=== PATIENT | male | born 2000 | race Caucasian/White ===

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

== ENCOUNTER 2021-02-27 12:18 | Emergency (ER) | payer OTHER, SELFPAY ==
[2021-02-27] VITALS (22 sets, daily range): BP systolic 109–152; BP diastolic 55–124; PULSE 56–89; RESP 9–19; TEMP 36.6; O2SAT 96–100
[2021-02-27] MEDS: Ondansetron 4 MG/2 ML VIAL (12:50)
--- NOTE | 2021-02-27 12:54 | ED.GENADUL_ITS ---
Discharge Plan Disposition Patient Disposition: HOME Condition: Good Discharge Details Clinical Impression: Nausea vomiting and diarrhea, Hypokalemia Primary Care Provider: Damon Brice ED Provider: Meli Ko Home Meds and New Rx's Prescriptions: New prochlorperazine maleate [Compazine] 10 mg tablet 10 mg PO Q6H PRNQty: 10 RF: 0 potassium chloride 20 mEq tablet,ER particles/crystals 20 meq PO DAILY Qty: 5 RF: 0 Discharge Instructions Instructions: Hypokalemia (ED), Acute Nausea and Vomiting (ED) Additional Instructions: Take potassium tomorrow if you are feeling improved Take Compazine as needed for nausea and vomiting Gatorade and clear liquid diet as tolerated Smoking marijuana may contribute your symptoms, I recommend smoking cessation Return earlier should you have new or worsening Discharge Data Discharge Date/Time-TO BE ENTERED AT DEPARTURE: 02/27/21 14:34 Medical Decision Making Of note, Elvia, nurse for patient went into her room and found him actively eliciting gag reflex, patient was asked why he was doing this and states because he is persistently nauseous He was given Compazine subsequently after Zofran administration and felt symptomatically improved and is requesting discharge home at this time He was given a liter of normal saline, potassium was entered to be 3.2, supplemented with oral outpatient therapy He will tolerate a liquid diet for the next day return should he have new or worsening complaints No focal tenderness on exam, abdomen feels improved antiemetics Given Compazine for home Differential Diagnosis Differential Diagnosis: Cannabinoid hyperemesis syndrome, gastroenteritis, gastritis, appendicitis Lab Data Lab results reviewed: Yes I reviewed the patient's lab results. HPI 20-year-old gentleman presents with nausea, vomiting, diarrhea. Patient states her symptoms started on Wednesday. He had a coworker who tested positive for COVID-19 on Wednesday reportedly. He denies any cough or fever today. He denies any chest pain or shortness of breath. He denies any myalgias. He denies any known spoiled food exposure. He has some cramping in his abdomen that is generalized and partially alleviated vomiting. He denies any additional complaints at this time. Denies any dark or tarry stools. Has had dark vomit, denies any visible bright bright blood General Date/Time Provider Initiated Documentation: 02/27/21 12:29 . Related Data Home Medications Medication Instructions Recorded Confirmed potassium chloride 20 meq PO DAILY #5 tab 02/27/21 prochlorperazine maleate 10 mg PO Q6H PRN #10 tab 02/27/21 [Compazine] Previous Rx's Medication Instructions Recorded potassium chloride 20 meq PO DAILY #5 tab 02/27/21 prochlorperazine maleate 10 mg PO Q6H PRN #10 tab 02/27/21 [Compazine] Allergies Allergy/AdvReac Type Severity Reaction Status Date / Time No Known Allergies Allergy Unverified 02/27/21 12:32 General Stated Complaint: Nausea/Vomit/Diar CROW: 3 Review of Systems Narrative: Review of systems obtained x7 aside from where indicated in HPI PFSH Family History Mother Substance abuse Mental disorder anxiety/depression Father Essential hypertension Other Diabetes mat great GF Myocardial infarction mat great GM Stroke PGF GRANDPARENT Heart disease Social History Smoking/Tobacco Use Status: Former Tobacco Use Smoking risk assessment performed?: Yes Alcohol Intake: current Alcohol Intake frequency: holidays/special occasions only Drug use: Daily Substance use type: marijuana Do you feel safe at home: Yes Do you feel safe in your relationship?: Yes Exam Const General: cooperative Orientation: oriented x3 Resp Effort & Inspection: normal respiratory effort Cardio Rate: regular rate Rhythm: regular rhythm GI Other: Mild diffuse tenderness no rebound or guarding Skin Other: Pallor Neuro General: patient alert and patient oriented x3 Course Vital Signs Vital signs: Vital Signs Temperature 36.6 C 02/27/21 12:26 Pulse 66 02/27/21 12:26 Respiratory Rate 18 02/27/21 12:26 Blood Pressure 152/89 H 02/27/21 12:26 Pulse Oximetry 100 02/27/21 12:26 Temperature 36.6 C 02/27/21 12:26 Temperature Source Temporal Artery Scan 02/27/21 12:26 Pulse 66 02/27/21 12:26 Respiratory Rate 18 02/27/21 12:26 Respiratory Effort Non-Labored 02/27/21 12:32 Blood Pressure 152/89 H 02/27/21 12:26 Blood Pressure Position Sitting 02/27/21 12:26 Pulse Oximetry 100 02/27/21 12:26 Oxygen Delivery Method Room Air 02/27/21 12:26 Oxygen Flow Rate 0 02/27/21 12:26 Pain Level 0 02/27/21 12:26
[2021-02-27] MEDS: Normal Saline 1,000 ML 1000 ML IV (13:01)
[2021-02-27 13:12] LABS: Abs Immature Grans 0.05 10^3/uL (0.0-0.06); Absolute Basophil Count 0.03 10^3/uL (0.0-0.2); Absolute Eosinophil Count 0.16 10^3/uL (0.0-0.7); Absolute Lymphocyte Count 1.56 10^3/uL (1.2-3.4); Absolute Monocyte Count 0.62 10^3/uL (0.1-0.8); Absolute Neutrophil Count 8.21 10^3/uL (1.2-6.7); Basophils % 0.3; Eosinophils % 1.5; HCT 44.7 % (40.0-50.0); Immature Grans % 0.5; Lymphocytes % 14.7; MCH 29.1 pg (27.0-33.0); MCHC 33.6 % (32.0-36.0); MCV 86.6 fL (80-95); MPV 10.7 fL (8.0-11.0); Monocytes % 5.8; Neutrophils % 77.2; Nucleated RBC 0 %; Platelet Count 242 10^3/uL (130-400); RBC 5.16 10^6/uL (4.36-5.78); RDW 12.1 % (11.8-14.1); RDW-SD 38.8 fL; WBC 10.63 10^3/uL (4.4-10.8)
[2021-02-27] MEDS: Prochlorperazine 10 MG/2 ML VIAL IVP (13:16)
[2021-02-27 13:28] LABS: ALT 27 U/L (16-63); AST 13 U/L (15-37); Albumin 4.6 g/dL (3.4-5.0); Alkaline Phosphatase 49 U/L (46-116); Anion Gap 11.2 mmol/L (3-11); BUN 12 mg/dL (7-18); Bilirubin, Total 0.6 mg/dL (0.2-1.0); CO2 27.8 mmol/L (21.0-32.0); CREATININE 0.9 mg/dL (0.70-1.30); Calcium 9.3 mg/dL (8.5-10.1); Chloride 103 mmol/L (98-107); Glucose 110 mg/dL (74-106); Lipase 138 U/L (73-393); Potassium 3.2 mmol/L (3.5-5.1); Sodium 142 mmol/L (136-145); Total Protein 7.8 g/dL (6.4-8.2)
--- NOTE | 2021-02-27 15:31 | NUR.NOTE ---
spoke with pharmacist at [facility]. Gave verbal orders for potassium and compazine. [facility] to send rxes to [facility].
--- NOTE | 2021-02-28 16:02 | NUR.NOTE ---
Nursing Note: Patient called this morning stating he was having trouble obtaining his prescriptions. After consulting with Kavita Armendariz, Care Management, I left a message on patient's cell phone with the phone number and name of [facility]. Jeimy Tenorio
== END 2021-02-27 14:34 | disposition home or self-care (01) ==
PROVIDERS: Emergency Provider Physician Assistant; PCP Pediatrics
DX: R11.2 Nausea with vomiting, unspecified (principal); R19.7 Diarrhea, unspecified; E87.6 Hypokalemia
CPT/HCPCS: 80053; 83690; 96361; 96374; 96375; 99284; 85025; 99283; J0780; J2405

== ENCOUNTER 2021-03-15 15:50 | Emergency (ER) | payer OTHER, SELFPAY ==
[2021-03-15 15:58] VITALS: BP 163/72; PULSE 92; RESP 16; TEMP 36.7; O2SAT 100
--- NOTE | 2021-03-15 16:15 | DI.CT_ITS ---
Exam(s) CT ABDOMEN PELVIS W EXAM: CT ABDOMEN PELVIS W CLINICAL HISTORY: Upper abd pain, Nausea vomiting TECHNIQUE: Imaging Protocol: Axial computed tomography images with coronal and sagittal reformatted images were created and reviewed CONTRAST MATERIAL: Intravenous: Omnipaque 350 Contrast volume:100 mL Oral: No COMPARISON: No exams were available for comparison FINDINGS: ABDOMEN: Lung Bases: Normal where visualized. Liver: Normal density. No measurable mass. Portal, Superior Mesenteric, and Splenic Veins: Unremarkable. Gallbladder and Biliary Tract: No radiodense calculus or dilation. Pancreas: Normal density, no abnormal calcifications or inflammatory process. Spleen: Normal. Adrenals: No masses seen. Kidneys: Normal size, contour and axis. No radiodense stones or obstructive uropathy. No masses seen. Abdominal Aorta: Abdominal portion non-dilated. Bowel: No obstruction or bowel wall thickening. Appendix is unremarkable. Peritoneal Cavity: No ascites, collection or mesenteric inflammatory response. No free air. Lymph Nodes: Within normal limits. Bones: Within normal limits for the patient's age. Soft Tissues: Unremarkable. PELVIS: Bladder: Symmetric distention, no gross wall thickening. Reproductive Organs: Unremarkable as visualized. Lymph Nodes: Within normal limits. Bones: Within normal limits for the patient's age. IMPRESSION: Unremarkable CT scan of the abdomen and pelvis. RADIATION DOSE DELIVERED: 1,090.83mGy.cm Total DLP DATA REPOSITORY: All CT scans at this facility are submitted to the National Radiology Data Registry (NRDR) Dose Index Registry (DIR) with the [employer] (ACR). RADIATION OPTIMIZATION: All CT scans at this facility use at least one of these dose optimization te chniques: automated exposure control; mA and/or kV adjustment per patient size (includes targeted exa ms where dose is matched to clinical indication); or iterative reconstruction.
--- NOTE | 2021-03-15 16:15 | ED.GENADUL_ITS ---
Discharge Plan Disposition Patient Disposition: HOME Condition: Stable Discharge Details Clinical Impression: Nausea & vomiting Primary Care Provider: Damon Brice ED Provider: Char Cabello Home Meds and New Rx's Prescriptions: New ondansetron 4 mg tablet,disintegrating 4 mg PO Q8H PRN5 Days Qty: 15 RF: 0 No Action prochlorperazine maleate [Compazine] 10 mg tablet 10 mg PO Q6H PRNQty: 10 RF: 0 potassium chloride 20 mEq tablet extended release 20 meq PO DAILY Qty: 6 RF: 0 Discharge Instructions Instructions: Acute Nausea and Vomiting (ED) Additional Instructions: Follow up with primary care provider in 3-5 days. Return to ED sooner if any worsening or concerns. Increase oral fluids. Take nausea medications as directed. Small frequent meals. Try alessia and lemon. CT and labs today were within normal limits. You are placed on care management list for help with primary care provider establishment. Referrals: Damon Brice MD [Primary Care Provider] - Discharge Data Discharge Date/Time-TO BE ENTERED AT DEPARTURE: 03/15/21 17:55 Medical Decision Making 20-year-old male presents to the ER with chief complaint of nausea vomiting loose stools for approximately 3 weeks. Was recently seen in the ER for similar 2 weeks ago. He reports that he just recently filled the potassium and Compazine prescriptions. He reports vomiting worse in the mornings. Labs ordered and CT abdomen pelvis. V rad CT abdomen pelvis results: FINDINGS: Liver: Normal. No mass. Gallbladder and bile ducts: Normal. No calcified stones. No ductal dilation. Pancreas: Normal. No ductal dilation. Spleen: Normal. No splenomegaly. Adrenal glands: Normal. No mass. Kidneys and ureters: Normal. No hydronephrosis. Stomach and bowel: Unremarkable. No obstruction. No mucosal thickening. Appendix: No evidence of appendicitis. Intraperitoneal space: Unremarkable. No free air. No significant fluid collection. Vasculature: Unremarkable. No abdominal aortic aneurysm. Lymph nodes: Unremarkable. No enlarged lymph nodes. Urinary bladder: Unremarkable as visualized. Reproductive: Unremarkable as visualized. Bones/joints: Unremarkable. No acute fracture. Soft tissues: Unremarkable. IMPRESSION: No acute findings. CBC, CMP largely unremarkable. AST is 13, ALT 28, alk phos 54 total protein 8.5, albumin 5.1. Discussed lab and CT results with patient who verbalized understanding. Patient has had no further emesis and feels better on reevaluation. Discussed home care will place patient on care management list for establishment of primary care provider. Given Zofran 4 mg ODT to go and a prescription written for this. Patient verbalized understanding and discussed strict return instructions. This text was generated using [employer] dictation system, please disregard any oddities of phrase or misspellings. HPI General Mode of arrival: ambulatory . Date/Time Provider Initiated Documentation: 03/15/21 16:04 . Limitations to Documentation: no limitations . Information obtained by: patient . HPI Narrative: 20-year-old male presents to the ER with chief complaint of nausea vomiting and loose stools for approximately 3 weeks. He was seen in the department approximately 2 weeks ago for similar. Was found to have hypokalemia at that time. He was prescribed Compazine and potassium supplements which he reports he just filled a couple of days ago. He did take 1 tablet prior to arrival with continued vomiting. He does report some upper midepigastric abdominal pain with palpation. Denies any hematochezia. Denies any problems urinating or burning with urination. Denies any fever. Related Data Home Medications Medication Instructions Recorded Confirmed potassium chloride 20 meq PO DAILY #6 tab 02/28/21 03/15/21 prochlorperazine maleate 10 mg PO Q6H PRN #10 tab 02/28/21 03/15/21 [Compazine] ondansetron 4 mg PO Q8H PRN 5 Days #15 tab 03/15/21 Previous Rx's Medication Instructions Recorded potassium chloride 20 meq PO DAILY #6 tab 02/28/21 prochlorperazine maleate 10 mg PO Q6H PRN #10 tab 02/28/21 [Compazine] ondansetron 4 mg PO Q8H PRN 5 Days #15 tab 03/15/21 Allergies Allergy/AdvReac Type Severity Reaction Status Date / Time No Known Allergies Allergy Unverified 03/15/21 16:03 General Stated Complaint: Nausea/Vomit/Diar CROW: 3 Review of Systems Narrative: Constitutional: Negative for weight loss, alert and oriented, well groomed, normal body habitus, appears comfortable. HEENT: Denies trauma, headaches, blurry vision, nasal discharge, sore throat, trouble swallowing. Chest: Denies chest pain, palpitations, irregular rhythm, hypertension. Respiratory: Denies Shortness of breath, cough, hemoptysis. GI: Denies diarrhea, constipation. Positive loose stools, nausea vomiting, midepigastric abdominal tenderness. : Denies dysuria, hematuria, flank pain, rectal bleeding. Neuro: Denies dizziness, blurry vision, weakness, syncope, headache or facial numbness. Hematologic: Denies easy bruising, intolerance to heat or cold, hair loss. PFSH Family History Mother Substance abuse Mental disorder anxiety/depression Father Essential hypertension Other Diabetes mat great GF Myocardial infarction mat great GM Stroke PGF GRANDPARENT Heart disease Social History Smoking/Tobacco Use Status: Former Tobacco Use Smoking risk assessment performed?: Yes Alcohol Intake: current Alcohol Intake frequency: holidays/special occasions only Drug use: Daily Substance use type: marijuana Do you feel safe at home: Yes Do you feel safe in your relationship?: Yes Exam Narrative Exam Narrative: Constitutional: Alert and oriented x3. Appears stated age. Normal body habitus. Head: Normocephalic, no trauma. Eyes: Pupils PERRLA, Red reflex noted, EOM's intact. Eyelids symmetrical without lesions, discharge, or swelling. ENT: Bilateral TM's WNL, External ear normal to inspection, no mastoid TTP, swelling, or erythema, Nasal turbinates WNL, no nasal discharge. Normal dentition, Posterior pharynx WNL, no exudate. Chest: RRR, Normal S1, S2, distal pulses intact. Resp: Lungs clear to auscultation bilaterally, no wheezes, rales, or rhonchi. Abdomen: Soft, nondistended midepigastric tenderness to palpation. Musculoskeletal: Normal gait, 5/5 strength to all four extremities. Skin: No suspicious rashes or lesions. Capillary refill less than 2 sec. Neurologic: Cranial nerves II-XII intact. Alert and oriented x 3. DTR's intact. Hematologic/Lymphatic: No ecchymosis, no lymphadenopathy. Course Vital Signs Vital signs: Vital Signs Temperature 36.7 C 03/15/21 15:58 Pulse 92 H 03/15/21 15:58 Respiratory Rate 16 03/15/21 15:58 Blood Pressure 163/72 H 03/15/21 15:58 Pulse Oximetry 100 03/15/21 15:58 Temperature 36.7 C 03/15/21 15:58 Temperature Source Temporal Artery Scan 03/15/21 15:58 Pulse 92 H 03/15/21 15:58 Respiratory Rate 16 03/15/21 15:58 Respiratory Effort 03/15/21 16:05 Blood Pressure 163/72 H 03/15/21 15:58 Blood Pressure Position Sitting 03/15/21 15:58 Pulse Oximetry 100 03/15/21 15:58 Oxygen Delivery Method Room Air 03/15/21 15:58 Oxygen Flow Rate 0 03/15/21 15:58 Pain Level 0 03/15/21 15:58
[2021-03-15] MEDS: Normal Saline 1,000 ML 1000 ML IV (16:30)
[2021-03-15] MEDS: Ondansetron 4 MG/2 ML VIAL IVP (16:35)
[2021-03-15 16:56] LABS: Abs Immature Grans 0.01 10^3/uL (0.0-0.06); Absolute Basophil Count 0.02 10^3/uL (0.0-0.2); Absolute Eosinophil Count 0.02 10^3/uL (0.0-0.7); Absolute Lymphocyte Count 0.72 10^3/uL (1.2-3.4); Absolute Monocyte Count 0.28 10^3/uL (0.1-0.8); Absolute Neutrophil Count 6.21 10^3/uL (1.2-6.7); Basophils % 0.3; Eosinophils % 0.3; HCT 45.8 % (40.0-50.0); HGB 15.6 g/dL (13.5-17.5); Immature Grans % 0.1; Lymphocytes % 9.9; MCH 29.2 pg (27.0-33.0); MCHC 34.1 % (32.0-36.0); MCV 85.8 fL (80-95); MPV 10.7 fL (8.0-11.0); Monocytes % 3.9; Neutrophils % 85.5; Nucleated RBC 0 %; Platelet Count 229 10^3/uL (130-400); RBC 5.34 10^6/uL (4.36-5.78); RDW 12.3 % (11.8-14.1); RDW-SD 38.5 fL; WBC 7.26 10^3/uL (4.4-10.8)
[2021-03-15 17:05] LABS: ALT 28 U/L (16-63); AST 13 U/L (15-37); Albumin 5.1 g/dL (3.4-5.0); Alkaline Phosphatase 54 U/L (46-116); Anion Gap 13.2 mmol/L (3-11); BUN 12 mg/dL (7-18); Bilirubin, Total 0.6 mg/dL (0.2-1.0); CO2 26.8 mmol/L (21.0-32.0); CREATININE 0.8 mg/dL (0.70-1.30); Calcium 9.7 mg/dL (8.5-10.1); Chloride 102 mmol/L (98-107); Glucose 96 mg/dL (74-106); Magnesium 1.8 mg/dL (1.8-2.4); Potassium 4.1 mmol/L (3.5-5.1); Sodium 142 mmol/L (136-145); Total Protein 8.5 g/dL (6.4-8.2)
[2021-03-15] MEDS: Normal Saline - Diluent 50 ML VIAL IV (17:07)
[2021-03-15] MEDS: Omnipaque 350 MG/ML 100 ML BTL IJ (17:07)
--- NOTE | 2021-03-15 17:23 | DI.VRAD_ITS ---
PROCEDURE INFORMATION: Exam: CT Abdomen And Pelvis With Contrast Exam date and time: 03/15/2021 4:29 PM Age: 20 years old Clinical indication: Patient HX: Chronic vomiting of bile when waking up, regardless of time of day or food intake TECHNIQUE: Imaging protocol: Computed tomography of the abdomen and pelvis with contrast. Contrast material: OMNIPAQUE 350; Contrast volume: 100 ml; Contrast route: INTRAVENOUS (IV); COMPARISON: No relevant prior studies available. FINDINGS: Liver: Normal. No mass. Gallbladder and bile ducts: Normal. No calcified stones. No ductal dilation. Pancreas: Normal. No ductal dilation. Spleen: Normal. No splenomegaly. Adrenal glands: Normal. No mass. Kidneys and ureters: Normal. No hydronephrosis. Stomach and bowel: Unremarkable. No obstruction. No mucosal thickening. Appendix: No evidence of appendicitis. Intraperitoneal space: Unremarkable. No free air. No significant fluid collection. Vasculature: Unremarkable. No abdominal aortic aneurysm. Lymph nodes: Unremarkable. No enlarged lymph nodes. Urinary bladder: Unremarkable as visualized. Reproductive: Unremarkable as visualized. Bones/joints: Unremarkable. No acute fracture. Soft tissues: Unremarkable. IMPRESSION: No acute findings. Dictated and Authenticated by: Aletah Flores MD. Ordering:HANS Pardo MD
--- NOTE | 2021-03-15 17:51 | NUR.NOTE ---
Nursing Note: Referral for nausea,vomiting,establish care follow up in 3 weeks given to Care Management. Jeimy Tenorio
[2021-03-15 18:00] LABS: Bilirubin Small (Negative); Blood Negative (Negative); Clarity Cloudy (Clear); Glucose Negative (Negative); Ketones >=160 mg/dL (Negative); Leukocyte Esterase Negative (Negative); Nitrite Negative (Negative); Urobilinogen 0.2 EU/dL (Up TO 0.2)
[2021-03-15] MEDS: Ondansetron O.D.T. 4 MG TABEF, 3 TABS/BTL PO (18:00)
[2021-03-15 18:09] LABS: Bacteria Negative HPF (Negative); C & S Indicated? No; Casts Negative LPF (Negative); Crystals Moderate Amorphous HPF (Negative); Epithelial Cells Negative HPF (Negative); Mucus Trace (Negative); Other Cells Negative (Negative); RBC Negative HPF (0-2); WBC Negative HPF (0-5)
[2021-03-15 18:10] VITALS: BP 147/70; PULSE 72; RESP 16; TEMP 36.9; O2SAT 96
== END 2021-03-15 17:55 | disposition home or self-care (01) ==
PROVIDERS: Emergency Provider Registered Nurse Emergency; PCP Pediatrics
DX: R11.2 Nausea with vomiting, unspecified (principal); R10.13 Epigastric pain
CPT/HCPCS: 36415; 80053; 96361; 96374; 99285; 74177; 81003; 81015; 83735; 85025; 99284; J2405; J3490

== ENCOUNTER 2021-03-17 13:11 | Emergency (ER) | payer OTHER, SELFPAY ==
[2021-03-17 13:25] VITALS: BP 150/93; PULSE 60; RESP 22; TEMP 36.6; O2SAT 99
[2021-03-17] MEDS: Normal Saline 1,000 ML 1000 ML IV (14:16)
[2021-03-17] MEDS: Ondansetron 4 MG/2 ML VIAL IVP (14:16)
[2021-03-17 14:24] LABS: Abs Immature Grans 0.02 10^3/uL (0.0-0.06); Absolute Basophil Count 0.03 10^3/uL (0.0-0.2); Absolute Eosinophil Count 0.11 10^3/uL (0.0-0.7); Absolute Lymphocyte Count 1.15 10^3/uL (1.2-3.4); Absolute Monocyte Count 0.48 10^3/uL (0.1-0.8); Absolute Neutrophil Count 6.04 10^3/uL (1.2-6.7); Basophils % 0.4; Eosinophils % 1.4; HCT 42.5 % (40.0-50.0); HGB 14.5 g/dL (13.5-17.5); Immature Grans % 0.3; Lymphocytes % 14.7; MCH 29.4 pg (27.0-33.0); MCHC 34.1 % (32.0-36.0); MPV 10.5 fL (8.0-11.0); Monocytes % 6.1; Neutrophils % 77.1; Nucleated RBC 0 %; Platelet Count 202 10^3/uL (130-400); RBC 4.94 10^6/uL (4.36-5.78); RDW 12.4 % (11.8-14.1); RDW-SD 38.9 fL; WBC 7.83 10^3/uL (4.4-10.8)
[2021-03-17 14:40] LABS: ALT 25 U/L (16-63); AST 11 U/L (15-37); Albumin 4.4 g/dL (3.4-5.0); Alkaline Phosphatase 48 U/L (46-116); Anion Gap 13.1 mmol/L (3-11); BUN 9 mg/dL (7-18); Bilirubin, Total 0.6 mg/dL (0.2-1.0); CO2 22.9 mmol/L (21.0-32.0); CREATININE 0.7 mg/dL (0.70-1.30); Calcium 8.8 mg/dL (8.5-10.1); Chloride 106 mmol/L (98-107); Glucose 105 mg/dL (74-106); Lipase 142 U/L (73-393); Potassium 3.5 mmol/L (3.5-5.1); Sodium 142 mmol/L (136-145); Total Protein 7.4 g/dL (6.4-8.2)
[2021-03-17 15:13] VITALS: BP 143/68; PULSE 69; RESP 18; TEMP 36.9; O2SAT 100
--- NOTE | 2021-03-17 15:15 | W.ED.GENAD ---
Discharge Plan Disposition Patient Disposition: HOME Condition: Stable Discharge Details Clinical Impression: Nausea & vomiting Primary Care Provider: Damon Brice ED Provider: Jalyn Mckeon Home Meds and New Rx's Prescriptions: Continued prochlorperazine maleate [Compazine] 10 mg tablet 10 mg PO Q6H PRNQty: 10 RF: 0 potassium chloride 20 mEq tablet extended release 20 meq PO DAILY Qty: 6 RF: 0 Discharge Instructions Instructions: Acute Nausea and Vomiting (ED) Additional Instructions: Please return immediately to the emergency department if you develop any new or worsening symptoms, if your condition does not improve as expected, or if you become otherwise concerned. It is extremely important that you call soon as possible to make an appointment to be seen in follow-up for this visit by your primary care doctor. Referrals: Damon Brice MD [Primary Care Provider] - Discharge Data Discharge Date/Time-TO BE ENTERED AT DEPARTURE: 03/17/21 16:10 Medical Decision Making Soren Figueroa is a 20-year-old man without reported history of major medical problems presenting to the emergency department with 3 weeks of nausea and vomiting in setting of visit to this ED 03/[address] abdomen/pelvis at that time. On exam patient is well and nontoxic-appearing. He is conversing normally. Benign cardiopulmonary exam, benign abdominal exam. Concern for cyclic vomiting related to daily marijuana use, dehydration, electrolyte abnormalities, gastritis, gastroparesis, other. Do not suspect infectious etiology given time course without progression of symptoms. Exam/history at this time is not consistent with acute emergent intra-abdominal process, acute coronary syndrome, acute emergent intracranial process. Plan for IV fluid hydration, screening labs, IV Zofran. Will monitor and reassess. Patient reports feeling significantly better after IV fluid and IV Zofran. He requests to be discharged home. Labs reviewed, anion gap elevated at 13.1, WBC normal, electrolytes within normal limits. Patient taking p.o. without issue. As patient has prescription for Compazine, will hold off on prescribing further antiemetics at this time. Discussed plan to continue cessation of marijuana use. Patient requested that he be transferred to adult primary care doctor as he currently still sees pediatrics. 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 Patient placed on care management with for adult PCP establishment. I had a lengthy discussion with Patient regarding return to emergency department precautions, home care, and importance of outpatient follow-up. Pt verbalizes understanding of the plan and is amenable. Patient discharged to home with clear plan for outpatient follow-up. All questions were answered. Disposition decision was made weighing the risks and benefits of hospitalization versus outpatient treatment, the risk for further decompensation, and the patient's wishes. Medical Records Medical records reviewed: Yes I reviewed the patient's medical records. Lab Data Lab results reviewed: Yes I reviewed the patient's lab results. Labs: Laboratory Tests Range/Units 03/17/21 03/17/21 14:00 14:00 WBC (4.4-10.8) 10^3/uL 7.83 RBC (4.36-5.78) 10^6/uL 4.94 Hgb (13.5-17.5) g/dL 14.5 Hct (40.0-50.0) % 42.5 MCV (80-95) fL 86.0 MCH (27.0-33.0) pg 29.4 MCHC (32.0-36.0) % 34.1 RDW (11.8-14.1) % 12.4 Plt Count (130-400) 10^3/uL 202 MPV (8.0-11.0) fL 10.5 Immature Gran % 0.3 Neutrophils % 77.1 Lymphocytes % 14.7 Monocytes % 6.1 Eosinophils % 1.4 Basophils % 0.4 Nucleated RBC % % 0 Absolute Neutrophils (1.2-6.7) 10^3/uL 6.04 Absolute Lymphocytes (1.2-3.4) 10^3/uL 1.15 L Absolute Monocytes (0.1-0.8) 10^3/uL 0.48 Absolute Eosinophils (0.0-0.7) 10^3/uL 0.11 Absolute Basophils (0.0-0.2) 10^3/uL 0.03 Sodium (136-145) mmol/L 142 Potassium (3.5-5.1) mmol/L 3.5 Chloride (98-107) mmol/L 106 Carbon Dioxide (21.0-32.0) mmol/L 22.9 Anion Gap (3-11) mmol/L 13.1 H BUN (7-18) mg/dL 9 Creatinine (0.70-1.30) mg/dL 0.7 Estimated GFR/1.73 m2 (mL/min/1.73m2) >= 60.00 Glucose (74-106) mg/dL 105 Calcium (8.5-10.1) mg/dL 8.8 Total Bilirubin (0.2-1.0) mg/dL 0.6 AST (15-37) U/L 11 L ALT (16-63) U/L 25 Alkaline Phosphatase (46-116) U/L 48 Total Protein (6.4-8.2) g/dL 7.4 Albumin (3.4-5.0) g/dL 4.4 Lipase (73-393) U/L 142 HPI General Mode of arrival: ambulatory. Date/Time Provider Initiated Documentation: 03/17/21 13:40. Limitations to Documentation: no limitations. Information obtained by: patient, RN notes reviewed and old records reviewed. HPI Narrative: Soren Figureoa is a 20-year-old man without reported history of major medical problems presenting to the emergency department with nausea and vomiting. Patient seen here 02/27 and 03/15 per patient and record review for similar symptoms. Patient underwent CT abdomen/pelvis 03/15/2021, resulted as negative. Patient reports that he was prescribed Compazine, but has not picked up prescription yet and is not taking any antiemetics at home. Patient reports that he has continued to vomit when he tries to eat food. He reports he has abdominal pain with vomiting but otherwise his stomach does not hurt. He denies fever, cough, shortness of breath, any other pain, rash, numbness, weakness, diarrhea, constipation. Patient reports that he is a daily marijuana user, although he has not been using marijuana in the past 2 to 3 days. He reports symptoms unchanged from when they began 3 weeks ago. Related Data Home Medications Medication Instructions Recorded Confirmed potassium chloride 20 meq PO DAILY #6 tab 02/28/21 03/17/21 prochlorperazine maleate 10 mg PO Q6H PRN #10 tab 02/28/21 03/17/21 [Compazine] Previous Rx's Medication Instructions Recorded potassium chloride 20 meq PO DAILY #6 tab 02/28/21 prochlorperazine maleate 10 mg PO Q6H PRN #10 tab 02/28/21 [Compazine] Allergies Allergy/AdvReac Type Severity Reaction Status Date / Time No Known Allergies Allergy Unverified 03/17/21 13:29 General Stated Complaint: Nausea/Vomit/Diar CROW: 3 Review of Systems Narrative: Constitutional: denies fevers Eyes: denies eye pain ENT: denies ear pain, dental pain, sore throat Cardiovascular: denies chest pain, edema Respiratory: denies SOB, cough GI: denies diarrhea, reports nausea, vomiting, abdominal pain with vomiting only : denies flank pain MSK: denies back pain, neck pain, arthralgias, myalgias Skin: denies rash Neuro: denies headaches, numbness, weakness PFSH Family History Mother Substance abuse Mental disorder anxiety/depression Father Essential hypertension Other Diabetes mat great GF Myocardial infarction mat great GM Stroke PGF GRANDPARENT Heart disease Social History Smoking/Tobacco Use Status: Former Tobacco Use Smoking risk assessment performed?: Yes Alcohol Intake: current Alcohol Intake frequency: holidays/special occasions only Drug use: Daily Substance use type: marijuana Do you feel safe at home: Yes Do you feel safe in your relationship?: Yes Exam Narrative Exam Narrative: Constitutional: well and [id number], pleasant, conversing normally HENT: head atraumatic/normocephalic/normal inspection, mucous membranes moist Eyes: conjunctiva normal, sclera normal, pupils 3mm b/l Neck: no stridor, normal ROM, trachea midline Resp: normal work of breathing, speaking in full sentences Cardio: normal rate, normal rhythm GI: abdomen soft, non-tender, non-distended Skin: warm, dry, normal color, no rash Neuro: alert, not altered, grossly non-focal, normal tone Ext: no edema Psych: normal mood, normal affect, normal behavior Course Vital Signs Vital signs: Vital Signs Temperature 36.6 C 03/17/21 13:25 Pulse 60 03/17/21 13:25 Respiratory Rate 22 03/17/21 13:25 Blood Pressure 150/93 H 03/17/21 13:25 Pulse Oximetry 99 03/17/21 13:25 Temperature 36.9 C 03/17/21 15:13 Temperature Source Skin 03/17/21 15:13 Pulse 69 03/17/21 15:13 Respiratory Rate 18 03/17/21 15:13 Respiratory Effort Non-Labored 03/17/21 13:30 Blood Pressure 143/68 H 03/17/21 15:13 Blood Pressure Position Sitting 03/17/21 13:25 Pulse Oximetry 100 03/17/21 15:13 Oxygen Delivery Method Room Air 03/17/21 15:13 Oxygen Flow Rate 0 03/17/21 15:13 Pain Level 3 03/17/21 13:25 Lab/Test Results Lab/Test Results: Laboratory Tests Range/Units 03/17/21 03/17/21 14:00 14:00 WBC (4.4-10.8) 10^3/uL 7.83 RBC (4.36-5.78) 10^6/uL 4.94 Hgb (13.5-17.5) g/dL 14.5 Hct (40.0-50.0) % 42.5 MCV (80-95) fL 86.0 MCH (27.0-33.0) pg 29.4 MCHC (32.0-36.0) % 34.1 RDW (11.8-14.1) % 12.4 Plt Count (130-400) 10^3/uL 202 MPV (8.0-11.0) fL 10.5 Immature Gran % 0.3 Neutrophils % 77.1 Lymphocytes % 14.7 Monocytes % 6.1 Eosinophils % 1.4 Basophils % 0.4 Nucleated RBC % % 0 Absolute Neutrophils (1.2-6.7) 10^3/uL 6.04 Absolute Lymphocytes (1.2-3.4) 10^3/uL 1.15 L Absolute Monocytes (0.1-0.8) 10^3/uL 0.48 Absolute Eosinophils (0.0-0.7) 10^3/uL 0.11 Absolute Basophils (0.0-0.2) 10^3/uL 0.03 Sodium (136-145) mmol/L 142 Potassium (3.5-5.1) mmol/L 3.5 Chloride (98-107) mmol/L 106 Carbon Dioxide (21.0-32.0) mmol/L 22.9 Anion Gap (3-11) mmol/L 13.1 H BUN (7-18) mg/dL 9 Creatinine (0.70-1.30) mg/dL 0.7 Estimated GFR/1.73 m2 (mL/min/1.73m2) >= 60.00 Glucose (74-106) mg/dL 105 Calcium (8.5-10.1) mg/dL 8.8 Total Bilirubin (0.2-1.0) mg/dL 0.6 AST (15-37) U/L 11 L ALT (16-63) U/L 25 Alkaline Phosphatase (46-116) U/L 48 Total Protein (6.4-8.2) g/dL 7.4 Albumin (3.4-5.0) g/dL 4.4 Lipase (73-393) U/L 142
--- NOTE | 2021-03-17 19:06 | NUR.NOTE ---
Nursing Note: needs pcp referral to [facility]. [facility]
== END 2021-03-17 16:10 | disposition home or self-care (01) ==
PROVIDERS: Emergency Provider Student in an Organized Health Care Education/Training Program; PCP Pediatrics
DX: R11.2 Nausea with vomiting, unspecified (principal); F12.10 Cannabis abuse, uncomplicated
CPT/HCPCS: 36415; 80053; 83690; 96361; 96374; 99284; 85025; J2405

== ENCOUNTER 2021-06-25 12:04 | Emergency (ER) | payer OTHER, SELFPAY ==
[2021-06-25 12:11] VITALS: BP 162/92; PULSE 52; RESP 16; TEMP 36.6; O2SAT 99
[2021-06-25] MEDS: Normal Saline 1,000 ML 1000 ML IV ×2 (12:47→13:13)
[2021-06-25] MEDS: Ondansetron 4 MG/2 ML VIAL IVP (12:48)
--- NOTE | 2021-06-25 12:48 | W.ED.GENAD ---
Discharge Plan Disposition Patient Disposition: HOME Condition: Good Discharge Details Clinical Impression: Cyclic vomiting syndrome, Nausea & vomiting Primary Care Provider: Unknown,Unknown ED Provider: Damon Romero Discharge Instructions Instructions: Acute Nausea and Vomiting (ED) Additional Instructions: Please drink plenty of fluids, avoid marijuana. if you notice any worsening of your symptoms, or any new symptoms such as vomiting, diarrhea, fever, chills, shortness of breath, chest pain, numbness, weakness, or fainting , please return immediately to the emergency department for reevaluation. Please follow up with your primary care provider as soon as possible for reassessment and reevaluation. As always, it was a pleasure participating in your medical care today. Discharge Data Discharge Date/Time-TO BE ENTERED AT DEPARTURE: 06/25/21 14:07 Medical Decision Making 20-year-old male with a recent diagnosis of cannabinoid hyperemesis syndrome, and regular marijuana use presents today for nausea and vomiting. Patient states that he has had a few episodes like this in the past. On his last ER visit was recommended that he stop marijuana use, which she did, which resolved the symptoms, unfortunately he used just again a couple days ago, after which she had an episode this past Wednesday which was 3 days ago, then a repeat episode today. He is admitted to vomiting 3-4 times today, with stomach acid-like vomit. He denies any hematemesis. He denies any abdominal pain and rather just nausea. He states that his symptoms feel identical to his last episode. He denies any diarrhea, chest pain or shortness of breath. No other sick contacts. No other complaints at this time. He has been unable to keep anything down today. Physical exam demonstrates no tenderness in the abdomen, no guarding or rebound whatsoever. Notably dry mucous membranes. Symptoms appear consistent and concerning for cyclic vomiting syndrome. Will give Compazine and Zofran, rehydrate, evaluate for electrolyte abnormality, monitor closely Patient feels much better after IV medications and 2 L of normal saline. He feels well and is requesting discharge. Is able to tolerate p.o. well without complication. Laboratory work-up is stable, lipase unremarkable, patient's potassium is minimally low at 3.3, recommend diet high in potassium on an outpatient basis, as well as continued marijuana cessation. Discussed red flags which to return. Repeat physical exam shows no abdominal tenderness. I have extensively reviewed the treatment plan and discharge instructions with the patient. I have addressed all patient concerns at this time. The patient was made aware of what symptoms to monitor for that would warrant a return to the emergency department. Discussed the plan with the patient, they demonstrate verbal understanding and agreement with our assessment and plan at this time. The documentation in this chart was dictated using [employer] dictation software. Please excuse any dictation errors. HPI General Date/Time Provider Initiated Documentation: 06/25/21 12:27. HPI Narrative: 20-year-old male with a recent diagnosis of cannabinoid hyperemesis syndrome, and regular marijuana use presents today for nausea and vomiting. Patient states that he has had a few episodes like this in the past. On his last ER visit was recommended that he stop marijuana use, which she did, which resolved the symptoms, unfortunately he used just again a couple days ago, after which she had an episode this past Wednesday which was 3 days ago, then a repeat episode today. He is admitted to vomiting 3-4 times today, with stomach acid-like vomit. He denies any hematemesis. He denies any abdominal pain and rather just nausea. He states that his symptoms feel identical to his last episode. He denies any diarrhea, chest pain or shortness of breath. No other sick contacts. No other complaints at this time. He has been unable to keep anything down today. Related Data Allergies Allergy/AdvReac Type Severity Reaction Status Date / Time No Known Allergies Allergy Unverified 06/25/21 12:15 General Stated Complaint: Nausea/Vomit/Diar CROW: 3 Review of Systems All systems reviewed & are unremarkable except as noted in HPI and below PFSH Family History Mother Substance abuse Mental disorder anxiety/depression Father Essential hypertension Other Diabetes mat great GF Myocardial infarction mat great GM Stroke PGF GRANDPARENT Heart disease Social History Smoking/Tobacco Use Status: Former Tobacco Use Smoking risk assessment performed?: Yes Alcohol Intake: current Alcohol Intake frequency: holidays/special occasions only Drug use: Daily Substance use type: marijuana Do you feel safe at home: Yes Do you feel safe in your relationship?: Yes Exam Narrative Exam Narrative: 1.Const: Well-nourished, Well-developed, appearing stated age 2.Eyes: PERRL, no conjunctival injection, and symmetrical lids. 3.ENT: Atraumatic external nose and ears. Notably dry MM. Neck: Symmetric, trachea midline, No thyromegaly. 4.CVS: +S1/S2, No murmurs or gallops. Peripheral pulses 2+ and equal in all extremities. Brisk capillary refill in all extremities. 5.RESP: Unlabored respiratory effort. Clear to auscultation bilaterally. No wheezes rales or rhonchi 6.GI: Soft, Nontender/Nondistended, No hepatosplenomegaly. No guarding or rebound. 7.MSK: Normocephalic/Atraumatic, Extremities w/o deformity or ttp No cyanosis or clubbing, Normal movement of all extremities 8.Skin: Warm, Dry. No rashes or lesions. 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 Sensation grossly intact, no focal neurologic deficits. 10.Psych: (AAO) x3. Appropriate mood and affect Course Vital Signs Vital signs: Vital Signs Temperature 36.6 C 06/25/21 12:11 Pulse 52 L 06/25/21 12:11 Respiratory Rate 16 06/25/21 12:11 Blood Pressure 162/92 H 06/25/21 12:11 Pulse Oximetry 99 06/25/21 12:11 Temperature 36.6 C 06/25/21 12:11 Temperature Source Skin 06/25/21 12:11 Pulse 52 L 06/25/21 12:11 Respiratory Rate 16 06/25/21 12:11 Respiratory Effort Non-Labored 06/25/21 12:14 Blood Pressure 162/92 H 06/25/21 12:11 Blood Pressure Position Sitting 06/25/21 12:11 Pulse Oximetry 99 06/25/21 12:11 Oxygen Delivery Method Room Air 06/25/21 12:11 Oxygen Flow Rate 0 06/25/21 12:11
[2021-06-25] MEDS: Prochlorperazine 10 MG/2 ML VIAL IVP (12:49)
[2021-06-25 12:51] LABS: Abs Immature Grans 0.04 10^3/uL (0.0-0.06); Absolute Basophil Count 0.03 10^3/uL (0.0-0.2); Absolute Eosinophil Count 0.08 10^3/uL (0.0-0.7); Absolute Lymphocyte Count 1.49 10^3/uL (1.2-3.4); Absolute Monocyte Count 0.51 10^3/uL (0.1-0.8); Absolute Neutrophil Count 7.96 10^3/uL (1.2-6.7); Basophils % 0.3; Eosinophils % 0.8; HCT 43.2 % (40.0-50.0); HGB 14.2 g/dL (13.5-17.5); Immature Grans % 0.4; Lymphocytes % 14.7; MCH 28.4 pg (27.0-33.0); MCHC 32.9 % (32.0-36.0); MCV 86.4 fL (80-95); MPV 10.5 fL (8.0-11.0); Neutrophils % 78.8; Nucleated RBC 0 %; Platelet Count 201 10^3/uL (130-400); RDW-SD 40.8 fL; WBC 10.11 10^3/uL (4.4-10.8)
[2021-06-25 13:02] LABS: ALT 23 U/L (16-63); AST 11 U/L (15-37); Albumin 4.4 g/dL (3.4-5.0); Alkaline Phosphatase 46 U/L (46-116); Anion Gap 9.4 mmol/L (3-11); BUN 9 mg/dL (7-18); Bilirubin, Total 0.6 mg/dL (0.2-1.0); CO2 26.6 mmol/L (21.0-32.0); CREATININE 0.8 mg/dL (0.70-1.30); Calcium 8.9 mg/dL (8.5-10.1); Chloride 105 mmol/L (98-107); Glucose 112 mg/dL (74-106); Lipase 236 U/L (73-393); Potassium 3.3 mmol/L (3.5-5.1); Sodium 141 mmol/L (136-145); Total Protein 7.3 g/dL (6.4-8.2)
[2021-06-25 14:07] VITALS: BP 130/84; PULSE 81; TEMP 36.9; O2SAT 97
== END 2021-06-25 14:07 | disposition home or self-care (01) ==
PROVIDERS: Emergency Provider Student in an Organized Health Care Education/Training Program
DX: R11.15 Cyclical vomiting syndrome unrelated to migraine (principal); F12.188 Cannabis abuse with other cannabis-induced disorder
CPT/HCPCS: 36415; 80053; 83690; 96361; 96374; 96375; 99284; 85025; J0780; J2405